=== PATIENT | female | born 1975 | race Hispanic/Latino ===

== ENCOUNTER 2016-11-19 08:28 | Emergency (ER) | payer SELFPAY ==
[~2016-11-19] VITALS: Ht 157.5 cm; Wt 120.0 kg
[~2016-11-19 08:28] MED LIST: ALL DAY10 MG; AMOXICILLIN/CL875 MG PO; AMOXICILLIN500 MG PO; ANTIVERT PO; CEPHALEXIN500 M1 PO; CIPRO XR500 MG PO; CIPROFLOXACN500 MG PO; CYCLOBENZAPR5 MG PO; DICLOFENAC SODI75 M1 OR; FERR SULFATE325 MG PO; FERROUS SULF325 M1 PO; FIORICE1 PO; FLAGYL500 MG PO; FLEXERIL OR; FLEXERIL PO; HEADACHE MEDICATION; IRON325 MG PO; LASIX 20 MG20 MG/TAB PO; LORTAB5 PO; MACRODANTIN100 MG OR; MEDDOSEPAK PO; METFORMIN500 M1 PO; NAPROSYN500 MG PO; NO HOME MEDS; PREDNISONE20 MG PO; PRENATAL1 TAB OR; PREVACID30 M2 OR; TRAMADOL HCL50 MG PO; ULTRAM50 M1; ULTRAM50 M1 OR; ULTRAM50 M1 PO; ULTRAM50 MG PO; WOMENS MULTI VITAMIN; [UNRECOGNIZED DRUG - CODE] PO; [UNRECOGNIZED DRUG - OTHER] PO
[2016-11-19 09:01] LABS: HEMATOCRIT 37.6 % (37.0-47.0); IMMATURE GRANULOCYTES 0.2 % (0.0-1.0); MEAN CELL VOLUME 81.4 fL CALC (80.0-100.0); MEAN CORPUSCULAR HGB CONC 31.9 g/L CALC (32.0-36.0); NEUT# 3.65 thou/uL (2.00-7.15); RED BLOOD COUNT 4.62 mill/uL (4.20-5.60); RED CELL DISTRI WIDTH 15.3 % (11.5-15.5)
[2016-11-19 09:13] LABS: ALBUMIN 4.1 g/dL (3.2-5.0); ALKALINE PHOSPHATASE 85 u/l (38-126); AMYLASE 59 u/l (30-110); ANION GAP 14 (6-22 (CALC)); BILIRUBIN, TOTAL 1.1 mg/dL (0.0-1.4); BUN 10 mg/dL (7-17); BUN/CREATININE RATIO 15 (12-20 (CALC)); CALCIUM 9.3 mg/dL (8.4-10.2); CARBON DIOXIDE 29 mmol/l (22-30); CHLORIDE 103 mmol/l (95-108); CREATININE 0.7 mg/dL (0.5-1.0); GFR > 60 ML/MIN (>=60 (CALC)); GFR FOR AFR.AMER. > 60 ML/MIN (>=60 (CALC)); GLUCOSE 120 mg/dL (65-105); LIPASE 85 u/l (23-300); POTASSIUM 3.8 mmol/l (3.5-5.1); SGOT/AST 31 u/l (14-36); SGPT/ALT 26 u/l (9-52); SODIUM 143 mmol/l (137-146); TOTAL PROTEIN 8.4 g/dL (6.3-8.2)
[2016-11-19 09:24] LABS: MYOGLOBIN 26 ng/mL (0 - 62)
[2016-11-19 09:39] LABS: URINE BILIRUBIN - DIPSTICK NEGATIVE (NEGATIVE); URINE BLOOD DIPSTICK SMALL (NEGATIVE); URINE CLARITY CLEAR; URINE COLOR YELLOW; URINE GLUCOSE - DIPSTICK NEGATIVE (NEGATIVE); URINE KETONE NEGATIVE (NEGATIVE); URINE LEUK ESTERASE NEGATIVE (NEGATIVE); URINE NITRITE - DIPSTICK NEGATIVE (Negative); URINE PROTEIN - DIPSTICK NEGATIVE (NEG-TRACE); URINE UROBILINOGEN - DIPSTICK 0.2 E.U./dL (0.2)
[2016-11-19 09:53] LABS: URINE SQUAMOUS EPITHELIAL CELL FEW EPI/hpf (0-FEW); URINE WBC 0-2 WBC/hpf (0-5)
[2016-11-19] MEDS ORDERED: NEXIUM40 M1 PO (10:51)
[2016-11-19 11:13] VITALS: BP 109/83
== END 2016-11-19 11:20 | disposition home or self-care (01) | DRG 392 ==
LOC: ED 08:28
PROVIDERS: Emergency Medicine
DX: R10.13 Epigastric pain (principal); M48.00 Spinal stenosis, site unspecified

== ENCOUNTER 2016-12-17 13:14 | Emergency (ER) | payer SELFPAY ==
[~2016-12-17] VITALS: Ht 157.5 cm; Wt 120.0 kg
[~2016-12-17 13:14] MED LIST changes: +NEXIUM40 M1 PO
[2016-12-17] MEDS ORDERED: FERR SULFATE325 MG PO (13:26)
[2016-12-17 15:55] LABS: HEMATOCRIT 39.5 % (37.0-47.0); HEMOGLOBIN 12.4 g/dl (12.0-16.0); IMMATURE GRANULOCYTES 0.3 % (0.0-1.0); MEAN CELL VOLUME 81.8 fL CALC (80.0-100.0); MEAN CORPUSCULAR HGB 25.7 pG CALC (26.0-32.0); MEAN CORPUSCULAR HGB CONC 31.4 g/L CALC (32.0-36.0); NEUT# 4.08 thou/uL (2.00-7.15); RED BLOOD COUNT 4.83 mill/uL (4.20-5.60); RED CELL DISTRI WIDTH 15.8 % (11.5-15.5)
[2016-12-17 16:03] LABS: ALBUMIN 4.3 g/dL (3.2-5.0); ALKALINE PHOSPHATASE 83 u/l (38-126); ANION GAP 18 (6-22 (CALC)); BILIRUBIN, TOTAL 0.6 mg/dL (0.0-1.4); BUN 10 mg/dL (7-17); BUN/CREATININE RATIO 15 (12-20 (CALC)); CALCIUM 9.3 mg/dL (8.4-10.2); CARBON DIOXIDE 27 mmol/l (22-30); CHLORIDE 105 mmol/l (95-108); CREATININE 0.7 mg/dL (0.5-1.0); GFR > 60 ML/MIN (>=60 (CALC)); GFR FOR AFR.AMER. > 60 ML/MIN (>=60 (CALC)); GLUCOSE 102 mg/dL (65-105); POTASSIUM 4.2 mmol/l (3.5-5.1); SGOT/AST 22 u/l (14-36); SGPT/ALT 37 u/l (9-52); SODIUM 146 mmol/l (137-146)
[2016-12-17] MEDS ORDERED: ANTIVERT PO (16:08)
[2016-12-17] MEDS ORDERED: ZOFRAN ODT4 MG PO (16:08)
[2016-12-17] MEDS ORDERED: FIORICET PO (16:08)
[2016-12-17 17:21] VITALS: BP 97/55
== END 2016-12-17 17:25 | disposition home or self-care (01) | DRG 103 ==
LOC: ED 13:14
PROVIDERS: Emergency Medicine
DX: R51 Headache (principal); R42 Dizziness and giddiness

== ENCOUNTER 2017-03-26 14:35 | Emergency (ER) | payer SELFPAY ==
[~2017-03-26] VITALS: Ht 157.5 cm; Wt 123.0 kg
[~2017-03-26 14:35] MED LIST changes: +FIORICET PO; +ZOFRAN ODT4 MG PO
[2017-03-26 15:03] LABS: HEMOGLOBIN 12.2 g/dl (12.0-16.0); IMMATURE GRANULOCYTES 0.2 % (0.0-1.0); MEAN CELL VOLUME 80.1 fL CALC (80.0-100.0); MEAN CORPUSCULAR HGB 25.1 pG CALC (26.0-32.0); MEAN CORPUSCULAR HGB CONC 31.3 g/L CALC (32.0-36.0); NEUT# 6.06 thou/uL (2.00-7.15); RED BLOOD COUNT 4.87 mill/uL (4.20-5.60); RED CELL DISTRI WIDTH 15.9 % (11.5-15.5); URINE BILIRUBIN - DIPSTICK NEGATIVE (NEGATIVE); URINE BLOOD DIPSTICK SMALL (NEGATIVE); URINE CLARITY CLEAR; URINE COLOR YELLOW; URINE GLUCOSE - DIPSTICK NEGATIVE (NEGATIVE); URINE KETONE NEGATIVE (NEGATIVE); URINE LEUK ESTERASE NEGATIVE (NEGATIVE); URINE NITRITE - DIPSTICK NEGATIVE (Negative); URINE PROTEIN - DIPSTICK NEGATIVE (NEG-TRACE); URINE SPECIFIC GRAVITY 1.015; URINE UROBILINOGEN - DIPSTICK 0.2 E.U./dL (0.2)
[2017-03-26 15:13] LABS: URINE SQUAMOUS EPITHELIAL CELL FEW EPI/hpf (0-FEW)
[2017-03-26 15:18] LABS: ALBUMIN 4.5 g/dL (3.2-5.0); ALKALINE PHOSPHATASE 101 u/l (38-126); AMYLASE 74 u/l (30-110); ANION GAP 16 (6-22 (CALC)); BILIRUBIN, TOTAL 0.7 mg/dL (0.0-1.4); BUN 12 mg/dL (7-17); BUN/CREATININE RATIO 18 (12-20 (CALC)); CALCIUM 9.3 mg/dL (8.4-10.2); CARBON DIOXIDE 28 mmol/l (22-30); CHLORIDE 102 mmol/l (95-108); CREATININE 0.7 mg/dL (0.5-1.0); GFR > 60 ML/MIN (>=60 (CALC)); GFR FOR AFR.AMER. > 60 ML/MIN (>=60 (CALC)); GLUCOSE 110 mg/dL (65-105); LIPASE 143 u/l (23-300); POTASSIUM 3.7 mmol/l (3.5-5.1); SGOT/AST 28 u/l (14-36); SGPT/ALT 35 u/l (9-52); SODIUM 143 mmol/l (137-146); TOTAL PROTEIN 8.9 g/dL (6.3-8.2)
[2017-03-26 15:30] LABS: MYOGLOBIN 15 ng/mL (0 - 62)
[2017-03-26 17:20] VITALS: BP 118/61
== END 2017-03-26 17:21 | disposition home or self-care (01) | DRG 392 ==
LOC: ED 14:35
PROVIDERS: Emergency Medicine
DX: R10.31 Right lower quadrant pain (principal); M79.604 Pain in right leg; R10.9 Unspecified abdominal pain

== ENCOUNTER 2018-02-05 20:43 | Emergency (ER) | payer SELFPAY ==
[~2018-02-05] VITALS: Ht 157.5 cm; Wt 130.0 kg
[2018-02-05 21:35] LABS: HEMATOCRIT 40.3 % (37.0-47.0); HEMOGLOBIN 12.7 g/dl (12.0-16.0); IMMATURE GRANULOCYTES 0.2 % (0.0-5.0); MEAN CELL VOLUME 80.6 fL CALC (80.0-100.0); MEAN CORPUSCULAR HGB 25.4 pG CALC (26.0-32.0); MEAN CORPUSCULAR HGB CONC 31.5 g/L CALC (32.0-36.0); NEUT# 5.28 thou/uL (2.00-7.15); RED CELL DISTRI WIDTH 15.8 % (11.5-15.5)
[2018-02-05 21:44] LABS: ALBUMIN 4.5 g/dL (3.2-5.0); ALKALINE PHOSPHATASE 113 u/l (38-126); AMYLASE 71 u/l (30-110); ANION GAP 15 (6-22 (CALC)); BILIRUBIN, TOTAL 0.7 mg/dL (0.0-1.4); BUN 9 mg/dL (7-17); BUN/CREATININE RATIO 13 (12-20 (CALC)); CARBON DIOXIDE 29 mmol/l (22-30); CHLORIDE 102 mmol/l (95-108); CREATININE 0.7 mg/dL (0.5-1.0); GFR > 60 ML/MIN (>=60 (CALC)); GFR FOR AFR.AMER. > 60 ML/MIN (>=60 (CALC)); LIPASE 101 u/l (23-300); POTASSIUM 3.6 mmol/l (3.5-5.1); SGOT/AST 41 u/l (14-36); SGPT/ALT 49 u/l (9-52); SODIUM 143 mmol/l (137-146); TOTAL PROTEIN 9.2 g/dL (6.3-8.2)
[2018-02-05 21:56] LABS: MYOGLOBIN 37 ng/mL (0 - 62)
[2018-02-05 23:18] LABS: URINE BLOOD DIPSTICK LARGE (NEGATIVE); URINE COLOR YELLOW; URINE GLUCOSE - DIPSTICK NEGATIVE (NEGATIVE); URINE KETONE TRACE mg/dL (NEGATIVE); URINE LEUK ESTERASE NEGATIVE (NEGATIVE); URINE PH 6.5 (4.5-8.0); URINE PROTEIN - DIPSTICK 100 mg/dL (NEG-TRACE); URINE SPECIFIC GRAVITY 1.025
[2018-02-05 23:23] LABS: URINE CLARITY CLEAR; URINE NITRITE - DIPSTICK POSITIVE (Negative)
[2018-02-05 23:25] LABS: URINE BILIRUBIN - DIPSTICK NEGATIVE (NEGATIVE)
[2018-02-05 23:32] LABS: URINE BACTERIA FEW hpf; URINE RBC TNTC RBC/hpf (0-5); URINE SQUAMOUS EPITHELIAL CELL FEW EPI/hpf (0-FEW); URINE WBC 0-2 WBC/hpf (0-5)
[2018-02-06] VITALS: BP 107/56
[2018-02-06] MEDS ORDERED: PROTONIX40 MG PO (00:02)
== END 2018-02-06 00:16 | disposition home or self-care (01) | DRG 392 ==
LOC: ED 20:43
PROVIDERS: Emergency Medicine
DX: R10.12 Left upper quadrant pain (principal); E11.9 Type 2 diabetes mellitus without complications
CPT/HCPCS: Q9967; S0164

== ENCOUNTER 2018-09-01 09:06 | Emergency (ER) | payer SELFPAY ==
[~2018-09-01] VITALS: Ht 157.5 cm; Wt 118.0 kg
[~2018-09-01 09:06] MED LIST changes: +PROTONIX40 MG PO
[2018-09-01] MEDS ORDERED: CYCLOBENZAPR5 MG PO (09:49)
[2018-09-01] MEDS ORDERED: MOTRIN400 MG PO (09:49)
[2018-09-01] MEDS ORDERED: VOLTAREN1%GEL TOP (09:58)
[2018-09-01 10:04] VITALS: BP 127/88
[2018-09-07] MEDS ORDERED: IRON FORMULA PO (09:13)
[2018-09-07] MEDS ORDERED: MEDDOSEPAK PO (09:26)
[2018-09-07] MEDS ORDERED: TRAMADOL HCL50 MG PO (09:27)
== END 2018-09-01 10:07 | disposition home or self-care (01) | DRG 563 ==
LOC: ED 09:06
DX: S39.012A Strain of muscle, fascia and tendon of lower back, initial encounter (principal); M54.5 Low back pain

== ENCOUNTER → 2018-09-07 | Outpatient (REF) | payer SELFPAY ==
[~2018-09-07] MED LIST changes: +IRON FORMULA PO; +MOTRIN400 MG PO; +VOLTAREN1%GEL TOP
[2018-09-07 09:12] LABS: COCAINE NEGATIVE (NEGATIVE); METHADONE NEGATIVE (NEGATIVE); TETRAHYDROCANNABIONOL NEGATIVE (NEGATIVE)
[2018-09-07 09:13] LABS: BARBITURATES NEGATIVE (NEGATIVE); OXCYCODONE NEGATIVE (NEGATIVE); TRICYLIC ANTIDEPRESSANTS NEGATIVE (NEGATIVE)
[2018-09-07 09:14] VITALS: BP 143/91
== END | disposition home or self-care (01) | DRG 950 ==
LOC: PAIN/MGT 08:58
PROVIDERS: ATTEND Anesthesiology Pain Medicine
DX: Z51.81 Encounter for therapeutic drug level monitoring (principal); Z79.891 Long term (current) use of opiate analgesic

== ENCOUNTER 2019-09-07 | Emergency (ER) | payer SELFPAY ==
[2019-09-07] MEDS ORDERED: METFORMIN500 MG PO (09:24)
[2019-09-07] MEDS ORDERED: FERRAPLUS 90 PO (09:24)
[2019-09-07 10:36] LABS: URINE BILIRUBIN - DIPSTICK NEGATIVE (NEGATIVE); URINE BLOOD DIPSTICK LARGE (NEGATIVE); URINE COLOR YELLOW; URINE GLUCOSE - DIPSTICK NEGATIVE (NEGATIVE); URINE KETONE NEGATIVE (NEGATIVE); URINE PROTEIN - DIPSTICK 30 mg/dL (NEG-TRACE); URINE UROBILINOGEN - DIPSTICK 0.2 E.U./dL (0.2)
[2019-09-07 10:39] LABS: URINE LEUK ESTERASE SMALL (NEGATIVE); URINE NITRITE - DIPSTICK POSITIVE (Negative)
[2019-09-07 10:40] LABS: URINE BACTERIA FEW hpf
[2019-09-07 11:42] LABS: HEMATOCRIT 37.7 % (37.0-47.0); HEMOGLOBIN 11.6 g/dl (12.0-16.0); IMMATURE GRANULOCYTES 0.3 % (0.0-5.0); MEAN CELL VOLUME 80.7 fL CALC (80.0-100.0); MEAN CORPUSCULAR HGB 24.8 pG CALC (26.0-32.0); MEAN CORPUSCULAR HGB CONC 30.8 g/L CALC (32.0-36.0); NEUT# 3.69 thou/uL (2.00-7.15); RED BLOOD COUNT 4.67 mill/uL (4.20-5.60); RED CELL DISTRI WIDTH 16.7 % (11.5-15.5)
[2019-09-07 11:59] LABS: ALBUMIN 3.9 g/dL (3.2-5.0); ALKALINE PHOSPHATASE 87 u/l (38-126); ANION GAP 12 (6-22 (CALC)); BILIRUBIN, TOTAL 0.6 mg/dL (0.0-1.4); BUN 10 mg/dL (7-17); BUN/CREATININE RATIO 20 (12-20 (CALC)); CARBON DIOXIDE 27 mmol/l (22-30); CHLORIDE 104 mmol/l (95-108); CREATININE 0.5 mg/dL (0.5-1.0); GFR > 60 ML/MIN (>=60 (CALC)); GFR FOR AFR.AMER. > 60 ML/MIN (>=60 (CALC)); LIPASE 83 u/l (23-300); POTASSIUM 4.2 mmol/l (3.5-5.1); SGOT/AST 35 u/l (14-36); SODIUM 138 mmol/l (137-146); TOTAL PROTEIN 7.6 g/dL (6.3-8.2)
[2019-09-07] MEDS ORDERED: CEPHALEXIN500 M1 PO (12:05)
== END 2019-09-07 12:32 | disposition home or self-care (01) | DRG 690 ==
PROVIDERS: Family Medicine
DX: N39.0 Urinary tract infection, site not specified (principal); E11.9 Type 2 diabetes mellitus without complications; Z79.84 Long term (current) use of oral hypoglycemic drugs

== ENCOUNTER 2020-08-01 07:37 | Emergency (ER) | payer SELFPAY ==
[~2020-08-01] VITALS: Ht 157.5 cm; Wt 116.0 kg
[~2020-08-01 07:37] MED LIST changes: +FERRAPLUS 90 PO; +METFORMIN500 M2 PO
[2020-08-01 08:08] LABS: HEMATOCRIT 40.7 % (37.0-47.0); HEMOGLOBIN 12.7 g/dl (12.0-16.0); IMMATURE GRANULOCYTES 0.3 % (0.0-5.0); MEAN CELL VOLUME 84.6 fL CALC (80.0-100.0); MEAN CORPUSCULAR HGB 26.4 pG CALC (26.0-32.0); MEAN CORPUSCULAR HGB CONC 31.2 g/dL CAL (32.0-36.0); NEUT# 5.03 thou/uL (2.00-7.15); RED BLOOD COUNT 4.81 mill/uL (4.20-5.60); RED CELL DISTRI WIDTH 14.8 % (11.5-15.5)
[2020-08-01 08:26] LABS: ALBUMIN 4.1 g/dL (3.2-5.0); ALKALINE PHOSPHATASE 94 u/l (38-126); ANION GAP 11 (6-22 (CALC)); BILIRUBIN, TOTAL 0.7 mg/dL (0.0-1.4); BUN 10 mg/dL (7-17); BUN/CREATININE RATIO 18 (12-20 (CALC)); C-REACTIVE PROTEIN 1.8 mg/dL (0-0.9); CARBON DIOXIDE 27 mmol/l (22-30); CHLORIDE 101 mmol/l (95-108); CREATININE 0.5 mg/dL (0.5-1.0); GFR > 60 ML/MIN (>=60 (CALC)); GFR FOR AFR.AMER. > 60 ML/MIN (>=60 (CALC)); POTASSIUM 3.9 mmol/l (3.5-5.1); SGOT/AST 27 u/l (14-36); SODIUM 136 mmol/l (137-146); TOTAL PROTEIN 7.8 g/dL (6.3-8.2)
[2020-08-01 10:15] VITALS: BP 119/55
== END 2020-08-01 10:15 | DRG 547 ==
LOC: ED 07:37
PROVIDERS: Student in an Organized Health Care Education/Training Program
DX: M31.6 Other giant cell arteritis (principal); E11.9 Type 2 diabetes mellitus without complications; Z79.84 Long term (current) use of oral hypoglycemic drugs; Z20.822 Contact with and (suspected) exposure to COVID-19

== ENCOUNTER 2024-03-27 05:49 | Emergency (ER) | payer OTHER ==
[~2024-03-27] VITALS: Ht 157.5 cm; Wt 120.1 kg
[2024-03-27] MEDS ORDERED: ASPIRIN 81 MG/TAB PO ONE (06:05)
[2024-03-27] MEDS ORDERED: IPRATROPIUM-Albuterol 0.5MG-2.5MG/3 ML NEB ONE (06:05)
[2024-03-27 06:08] VITALS: BP 103/65
[2024-03-27 06:21] LABS: BASO% 0.4 % (0-3); EOS% 1.8 % (0-8); HEMATOCRIT 42.3 % (37.0-47.0); HEMOGLOBIN 13.5 g/dl (12.0-16.0); IMMATURE GRANULOCYTES 0.1 % (0.0-5.0); MEAN CELL VOLUME 86.7 fL CALC (80.0-100.0); MEAN CORPUSCULAR HGB 27.7 pG CALC (26.0-32.0); MEAN CORPUSCULAR HGB CONC 31.9 g/dL CAL (32.0-36.0); MONO% 6.7 % (2-13); NEUT# 4.44 thou/uL (2.00-7.15); RED BLOOD COUNT 4.88 mill/uL (4.20-5.60); RED CELL DISTRI WIDTH 14.8 % (11.5-15.5)
[2024-03-27 06:39] LABS: ALBUMIN 4.2 g/dL (3.2-5.0); ALKALINE PHOSPHATASE 88 u/l (38-126); ANION GAP 7 (6-22 (CALC)); BUN 9 mg/dL (7-17); BUN/CREATININE RATIO 15 (12-20 (CALC)); CARBON DIOXIDE 25 mmol/l (22-30); CHLORIDE 110 mmol/l (95-108); CREATININE 0.6 mg/dL (0.5-1.0); ESTIMATED GFR 111 ML/MIN (>=90 (CALC)); SGOT/AST 23 u/l (14-36); SODIUM 139 mmol/l (137-146)
[2024-03-27] MEDS ORDERED: IBUPROFEN 800 MG/TAB PO ONE (06:40)
[2024-03-27 06:41] LABS: ACT PARTIAL THROMBO TIME 26.5 SECONDS (20.0-32.5); INTERNATIONAL NORMALIZED RATIO 1.1 RATIO (0.7-1.3)
[2024-03-27 06:44] LABS: PROTHROMBIN TIME 10.2 SECONDS (9.0-12.5)
[2024-03-27 06:46] LABS: BILIRUBIN, TOTAL 0.9 mg/dL (0.02-1.3)
[2024-03-27 06:53] LABS: D-DIMER 0.61 mg/L (0.19-0.60)
[2024-03-27 08:14] VITALS: BP 105/65
[2024-03-27 09:01] VITALS: BP 108/54
[2024-03-27] MEDS ORDERED: MOTRIN800 MG PO (10:01)
[2024-03-27 10:08] VITALS: BP 108/54
== END 2024-03-27 10:30 | disposition home or self-care (01) | DRG 204 ==
LOC: ED 05:49
PROVIDERS: Emergency Medicine
DX: R06.02 Shortness of breath (principal); R05.9 Cough, unspecified; M54.9 Dorsalgia, unspecified
CPT/HCPCS: Q9967